=== PATIENT | female | born 1950 | race Caucasian/White ===

== ENCOUNTER 2016-11-10 12:08 | Emergency (ER) | payer OTHER ==
[~2016-11-10 12:08] MED LIST: ASPI81CH21 PO; IBUP200T2 PO; LIDO1DIS2 TD; MEGE40TA2 PO; XARE15TA PO
[2016-11-10] MEDS ORDERED: ONDANSETRON 4MG/2ML VIAL (J2405) As Ordered ONE (13:17)
[2016-11-10] MEDS ORDERED: MORPHINE 4 MG/ML 1ML SYRINGE As Ordered ONE ×2 (13:18→15:02)
[2016-11-10 13:20] LABS: BASO # 0.1 K/mm3 (0.0-0.2); EOS # 0.1 K/mm3 (0.0-0.50); EOS % 1.2 % (0.0-3.0); LARGE UNSTAINED CELL # 0.1 K/mm3 (0.0-0.4); LARGE UNSTAINED CELL % 1.1 % (0.0-4.0); LYMPH % 14.6 % (24.0-44.0); MEAN CORPUSCULAR HEMOGLOBIN 28.9 pg (27.0-33.0); MEAN CORPUSCULAR HGB CONC 32.5 g/dl (32.0-36.5); MONO # 0.4 K/mm3 (0.0-0.8); MONO % 6.1 % (0.0-5.0); NEUTROPHILS # 4.8 K/mm3 (1.8-7.7); NEUTROPHILS % 75.9 % (36.0-66.0); PLATELET COUNT, AUTOMATED 232 k/mm3 (150-450); RED CELL DISTRIBUTION WIDTH 12.9 % (11.5-14.5); WHITE BLOOD COUNT 6.3 K/mm3 (4.0-10.0)
[2016-11-10 13:30] LABS: ANION GAP 9 MEQ/L (8-16); BLOOD UREA NITROGEN 27 MG/DL (7-18); CALCIUM LEVEL 9.1 MG/DL (8.8-10.2); CARBON DIOXIDE LEVEL 28 MEQ/L (21-32); CHLORIDE LEVEL 102 MEQ/L (98-107); CREATININE FOR GFR 1.06 MG/DL (0.55-1.02); GLOMERULAR FILTRATION RATE 55.6 (>45); GLUCOSE, FASTING 121 MG/DL (80-110); POTASSIUM SERUM 4.1 MEQ/L (3.5-5.1); SODIUM LEVEL 139 MEQ/L (136-145)
[2016-11-10] MEDS ORDERED: ISOVUE-370 76% 100ML VIAL (Q9967) As Ordered ONE (13:54)
[2016-11-10] MEDS ORDERED: CYCLOBENZAPRINE 10 MG TAB As Ordered ONE (18:29)
[2016-11-10] MEDS ORDERED: OXYCODONE/APAP 5MG/325MG(BULK) 1 TAB TAB As Ordered ONE (18:30)
--- NOTE | 2016-11-10 18:51 | EDDOCDS ---
Nurse's Notes [facility] Name: Radha So Age: 66 yrs Sex: Female : 1950 Arrival Date: 11/10/2016 Time: 12:08 Bed 6 Private MD: Diagnosis: Intervertebral disc disorders with radiculopathy, lumbar [id number], L5-S1 with right L5 nerve root compression at both levels Presentation: 11/10 12:18 Presenting complaint: Patient states: increased pain to right hip and right leg for jjr past week, developed dizziness and two episodes of sharp pain to left anterior chest this morning. Adult Sepsis Screening: The patient does not have new or worsening altered mentation. Patient's respiratory rate is less than 22. Systolic blood pressure is greater than 100. Patient has a qSOFA score of 0- Negative Sepsis Screen. Suicide/Homicide risk assessment- the patient denies having any suicidal and/or homicidal ideations and does not present with any other emotional, behavioral or mental health complaints. Status: Patient is not a residential service technician or dependent. Transition of care: patient was not received from another setting of care. 12:18 Acuity: JOSE Level 3 jjr 12:18 Method Of Arrival: Walkin/Carried/Asstd jjr 18:49 Aspirin was not taken prior to arrival. dls Triage Assessment: 12:26 General: Appears in no apparent distress. Pain: Location: right hip and right leg. HIV jjr screening NA for this visit Offered previously. Cardiovascular: Chest pain is described as vague, radiates Does not radiate. episodes are intermittent began 2 hours prior to arrival. Historical: - Allergies: codeine (Anaphylaxis); - Home Meds: 1. letrozole 2.5 mg oral tab 1 tab once daily 2. potassium chloride 10 mEq Oral cpER 2 caps once daily 3. Prinivil 10 mg Oral tab 1 tab once daily (Last dose: 11/10/2016) 4. chlorthalidone Unknown Oral 0.5 tab once daily 5. Vitamin D3 5,000 unit oral tab daily 6. magnesium oxide 400 mg Oral tab daily 7. Tylenol 500 mg Oral tab prn (Last dose: 11/09/2016) - PMHx: Hypertension; Cancer, Uterine; back pain; DVT; Pulmonary Embolism; DDD L-Spine; - PSHx: D & C; Oophorectomy - unilateral; right knee arthroscopy with meniscus repair; - The history from nurses notes was reviewed: and elements of the historical information I have obtained differs from that reported to nursing. - Social history: Smoking status: Patient states former smoker of tobacco. No barriers to communication noted, The patient speaks fluent Mauritanian. - Family history: Not pertinent. - : The pt / caregiver states he / she is not on anticoagulants. Home medication list is obtained from the patient. - Hospitalizations: : No recent hospitalization is reported. - Exposure Risk Screening:: None identified. - Immunization history:: All immunizations up-to-date. - Social history:: the patient is a non-smoker, the patient does not drink alcohol. Screenin:28 Screening information is obtained from the patient. Fall risk: No risks identified. dls Assistance ADL's: requires no assistance with activities of daily living. Abuse/DV Screen: The patient / caregiver reports he/she is: not in a situation that causes fear, pain or injury. Nutritional screening: No deficits noted. Advance Directives: Currently, there is no health care proxy. There is no active DNR order. There is no living will. There is no Power of Floor Covering Printer. Advance directive information has not previously been placed in an [facility] medical record. home support is adequate. Assessment: 13:27 General: Appears obese, uncomfortable, well developed, well nourished, well groomed, dls Behavior is cooperative. Neurological: No deficits noted. EENT: No deficits noted. Cardiovascular: No deficits noted. Respiratory: No deficits noted. GI: No deficits noted. : No deficits noted. Derm: No deficits noted. 14:20 General: Pt returned from CT via stretcher IV site remains patent and clear visiting dls with family at bedside.. 15:43 General: Pt states good relief of discomfort after pain medication lying on stretcher dls but is able to move around more now awaiting MRI.. 18:08 General: Pt ambulated in hallway briskly without assist pt states minimal discomfort dls during ambulation notified.. 18:50 Cardiovascular: Rhythm is sinus rhythm. dls Vital Signs: 12:11 BP 194 / 80 RA Sitting (auto/lg); Pulse 85; Resp 22; Temp 98.6(O); Pulse Ox 99% on R/A; bnb Weight 138.8 kg; Height 5 ft. 5 in. (165.10 cm); Pain 8/10; 15:09 BP 135 / 65; Pulse 82; Resp 20; Pain 8/10; dls 15:42 BP 136 / 74; Pain 3/10; dls 16:58 BP 126 / 59 (auto/); dls 16:59 Pulse 78 MON; dls 17:00 Pulse 74 MON; Pulse Ox 95% ; dls 17:26 BP 108 / 70 (auto/); dls 17:26 Pulse 80 MON; Pulse Ox 94% ; dls 18:47 BP 122 / 60; Pulse 76; Resp 18; Temp 97.4(TE); Pulse Ox 98% on R/A; Pain 2/10; dls 12:11 Body Mass Index 50.92 (138.80 kg, 165.10 cm) bnb Vitals: 12:11 Log In Time: November 10, 2016 at 12:08. bnb 12:11 RN notified that patient meets Red Flag criteria. bnb ED Course: 12:09 Patient visited by Mariluz Tapia PCA. bnb 12:09 Patient moved to Waiting bnb 12:12 Patient visited by Mariluz Tapia PCA. bnb 12:14 Patient visited by Mariluz Tapia PCA. bnb 12:16 Anna Freeman RN is Primary Nurse. jjr 12:16 Patient moved to 6 jjr 12:20 Triage Initiated jjr 12:30 EKG done. (by ED staff). Reviewed by Anna Freeman RN. jrd 12:31 Patient visited by Phill Judd PCA. jrd 12:44 Yunior Trevizo MD is Attending Physician. pc 13:14 CBC with Diff Sent. dls 13:15 Patient visited by Yunior Trevizo MD. pc 13:15 MED Profile Sent. dls 13:15 CIP Sent. dls 13:15 Troponin Sent. dls 13:28 The patient / caregiver is instructed regarding the plan of care and ED course. Cardiac dls monitor on. Pulse ox on. NIBP on. 13:28 Inserted saline lock: 18 gauge in right antecubital area and blood collected. The dls patient tolerated the procedure well. No procedures done that require assistance. 14:20 Patient visited by Anna Freeman RN. dls 15:28 Patient visited by Anna Freeman RN. dls 16:36 [facility] Payment Agreement was scanned into [employer] and attached to record. zo 16:51 Patient visited by Yunior Trevizo MD. pc 17:54 Patient visited by Yunior Trevizo MD. pc 18:24 Jaime Gandhi is Referral Physician. pc Administered Medications: 13:26 Drug: Ondansetron 4 mg [ondansetron HCl 2 mg/mL intravenous solution (2 mL)] Route: dls IVP; Site: right antecubital; 13:26 Drug: Diazepam 2 mg [diazepam 5 mg/mL injection syringe (0.4 mL)] Route: IVP; Site: dls right antecubital; 13:27 Drug: morphine 4 mg [morphine 4 mg/mL intravenous cartridge (1 mL)] Route: IVP; Site: dls right antecubital; 15:09 Drug: morphine 4 mg [morphine 4 mg/mL intravenous cartridge (1 mL)] Route: IVP; Site: dls right antecubital; 15:42 Follow up: BP 136 / 74; Pain 3/10 Adult; Response: Pain is decreased dls 18:46 Drug: oxyCODONE-acetaminophen 4 pack 1 packets [oxycodone-acetaminophen 5 mg-325 mg dls tablet (1 tabs)] {Co-Signature: kc3 (Debbie Magana RN).} Route: PO; 18:46 Drug: Cyclobenzaprine 10 mg [cyclobenzaprine 10 mg tablet (1 tabs)] Route: PO; dls 18:46 Follow up: Response: Med's dispensed home dls Order Results: Lab Order: CBC with Diff; SPEC'M 11/10/16 12:53 Test: WHITE BLOOD COUNT; Value: 6.3; Range: 4.0-10.0; Units: K/mm3; Status: F Test: RED BLOOD COUNT; Value: 4.87; Range: 4.00-5.40; Units: M/mm3; Status: F Test: HEMOGLOBIN; Value: 14.1; Range: 12.0-16.0; Units: g/dl; Status: F Test: HEMATOCRIT; Value: 43.4; Range: 36.0-47.0; Units: %; Status: F Test: MEAN CORPUSCULAR VOLUME; Value: 89.0; Range: 80.0-96.0; Units: fl; Status: F Test: MEAN CORPUSCULAR HEMOGLOBIN; Value: 28.9; Range: 27.0-33.0; Units: pg; Status: F Test: MEAN CORPUSCULAR HGB CONC; Value: 32.5; Range: 32.0-36.5; Units: g/dl; Status: F Test: RED CELL DISTRIBUTION WIDTH; Value: 12.9; Range: 11.5-14.5; Units: %; Status: F Test: PLATELET COUNT, AUTOMATED; Value: 232; Range: 150-450; Units: k/mm3; Status: F Test: NEUTROPHILS %; Value: 75.9; Range: 36.0-66.0; Abnormal: Above high normal; Units: %; Status: F Test: LYMPH %; Value: 14.6; Range: 24.0-44.0; Abnormal: Below low normal; Units: %; Status: F Test: MONO %; Value: 6.1; Range: 0.0-5.0; Abnormal: Above high normal; Units: %; Status: F Test: EOS %; Value: 1.2; Range: 0.0-3.0; Units: %; Status: F Test: BASO %; Value: 1.0; Range: 0.0-1.0; Units: %; Status: F Test: LARGE UNSTAINED CELL %; Value: 1.1; Range: 0.0-4.0; Units: %; Status: F Test: NEUTROPHILS #; Value: 4.8; Range: 1.8-7.7; Units: K/mm3; Status: F Test: LYMPH #; Value: 1.0; Range: 1.5-4.5; Abnormal: Below low normal; Units: K/mm3; Status: F Test: MONO #; Value: 0.4; Range: 0.0-0.8; Units: K/mm3; Status: F Test: EOS #; Value: 0.1; Range: 0.0-0.50; Units: K/mm3; Status: F Test: BASO #; Value: 0.1; Range: 0.0-0.2; Units: K/mm3; Status: F Test: LARGE UNSTAINED CELL #; Value: 0.1; Range: 0.0-0.4; Units: K/mm3; Status: F Lab Order: MED Profile; SPEC'11/10/16 12:53 Test: GLUCOSE, FASTING; Value: 121; Range: 80-110; Abnormal: Above high normal; Units: MG/DL; Status: F Test: BLOOD UREA NITROGEN; Value: 27; Range: 7-18; Abnormal: Above high normal; Units: MG/DL; Status: F Test: CREATININE FOR GFR; Value: 1.06; Range: 0.55-1.02; Abnormal: Above high normal; Units: MG/DL; Status: F Test: GLOMERULAR FILTRATION RATE; Value: 55.6; Range: >45; Status: F Test: SODIUM LEVEL; Value: 139; Range: 136-145; Units: MEQ/L; Status: F Test: POTASSIUM SERUM; Value: 4.1; Range: 3.5-5.1; Units: MEQ/L; Status: F Test: CHLORIDE LEVEL; Value: 102; Range: 98-107; Units: MEQ/L; Status: F Test: CARBON DIOXIDE LEVEL; Value: 28; Range: 21-32; Units: MEQ/L; Status: F Test: ANION GAP; Value: 9; Range: 8-16; Units: MEQ/L; Status: F Test: CALCIUM LEVEL; Value: 9.1; Range: 8.8-10.2; Units: MG/DL; Status: F Test Note: ; Units are mL/min/1.73 m2 Chronic Kidney Disease Staging per NKF: Stage I & II GFR >=60 Normal to Mildly Decreased Stage III GFR 30-59 Moderately Decreased Stage IV GFR 15-29 Severely Decreased Stage V GFR <15 Very Little GFR Left ESRD GFR <15 on AIRCRAFT STRESS ANALYST Lab Order: CIP; SPEC'11/10/16 12:53 Test: CPK CREATINE PHOSPHOKINASE; Value: 52; Range: 26-192; Units: U/L; Status: F Test: CK-MB VALUE MASS; Value: 1.5; Range: 0.0-3.6; Units: NG/ML; Status: F Test: MB/CK RELATIVE INDEX; Value: 2.88; Range: < OR =4; Status: F Test Note: ; DIAGNOSIS CRITERIA MMB ng/ml Relative Index (RI) NON-AMI < or = 5 N/A SHARMA ZONE > 5 < or = 4 AMI > 5 > 4 Lab Order: Troponin; DIANA'M 11/10/16 12:53 Test: TROPONIN I; Value: < 0.02; Range: < 0.10; Units: NG/ML; Status: F Test Note: ; Troponin I Reference Interval for [employer] LOCI: 99th Percentile= 0.00-0.045 ng/ml Risk Stratification: <= 0.10 ng/ml Decreased Risk for Adverse Clinical Events. 0.10-1.50 ng/ml Increased Risk for Adverse Clinical Events. Evaluation of additional criterion and/or repeat testing in 2-6 hours is suggested to rule out myocardial damage. >= 1.50 ng/ml Indicative of Myocardial Injury. Outcome: 18:24 Discharge ordered by Provider. pc 18:48 Discharge Assessment: Patient awake, alert and oriented x 3. No cognitive and/or dls functional deficits noted. Patient verbalized understanding of disposition instructions. patient administered narcotics - yes. Pt provided with safe discharge. The following High Risk Discharge criteria are identified: None. Discharged to home via wheelchair, with family. Condition: stable Condition: improved. Discharge instructions given to patient, Instructed on discharge instructions, follow up and referral plans. medication usage, Demonstrated understanding of instructions, medications, Pt was receptive of discharge instructions/ teaching. Prescriptions given X 2. CT Study completed. MRI Study completed. Property :Personal belongings accompany Pt. 18:50 Patient left the ED. dls Signatures: Yunior Trevizo MD MD pc Scott, Debra, RN RN dls Olin, Zoeann zo Raymond, Jessica, RN RN Phill Mo, CRNP CRNP Mariluz Hernández, CRNP CRNP holleyb Debbie Magana RN kc3 MTDD
--- NOTE | 2016-11-10 18:51 | EDDOCDS ---
Physician Documentation [facility] Name: Radha So Age: 66 yrs Sex: Female : 1950 Arrival Date: 11/10/2016 Time: 12:08 Bed 6 Private MD: Disposition: 11/10 18:22 Critical Care: Critical care not applicable. pc Disposition: 11/10/16 18:24 Discharged to Home/Self Care. Impression: Intervertebral disc disorders with radiculopathy, lumbar region - L4-L5, L5-S1 with right L5 nerve root compression at both levels. - Condition is Stable. - Discharge Instructions: Herniated Disk, Sciatica. - Prescriptions for Percocet 5- 325 mg Oral Tablet - take 1 tablet by ORAL route every 6 hours As needed MDD: 4 tabs; 20 tablet. Cyclobenzaprine 10 mg Oral Tablet - take 1 tablet by ORAL route 3 times per day As needed; 15 tablet. - Medication Reconciliation, Local Pharmacy Hours form. - Follow up: Jaime Gandhi; When: Call to arrange an appointment; Reason: Recheck today's complaints, Continuance of care. - Problem is new. - Symptoms have improved. HPI: 13:31 This 66 yrs old Female presents to ER via Walkin/Carried/Asstd with pc complaints of Chest Pain, Leg Pain. 13:32 The history is obtained from the patient. She has chronic low back pain that is managed pc with OTCs well. She did shovelling 6 days ago and felt sudden pain in her low back that radiated into her right buttock and down the back of her leg to her foot. She denies having any numbness or weakness in the leg. She has been having increased pain and now is unable to walk without a walker or two canes, but even then, has been bedridden for the past 3 days. She had increased pain while trying to go to the bathroom this morning and felt dizzy during the pain., She made it back to her bed and lay down and still had a sense of the room spinning. She was not SOB but she did have a sudden "twinge of pain" in her left breast. She denies any bowel or bladder control issues. 13:37 At their worst, the symptoms were a 10 out of 10. In the emergency department, the pc symptoms are unchanged. The patient has experienced a previous episode, approximately 5 years ago. The patient has been recently seen by their primary care provider, for a routine, regularly scheduled appointment. Historical: - Allergies: codeine (Anaphylaxis); - Home Meds: 1. letrozole 2.5 mg oral tab 1 tab once daily 2. potassium chloride 10 mEq Oral cpER 2 caps once daily 3. Prinivil 10 mg Oral tab 1 tab once daily (Last dose: 11/10/2016) 4. chlorthalidone Unknown Oral 0.5 tab once daily 5. Vitamin D3 5,000 unit oral tab daily 6. magnesium oxide 400 mg Oral tab daily 7. Tylenol 500 mg Oral tab prn (Last dose: 11/09/2016) - PMHx: Hypertension; Cancer, Uterine; back pain; DVT; Pulmonary Embolism; DDD L-Spine; - PSHx: D & C; Oophorectomy - unilateral; right knee arthroscopy with meniscus repair; - The history from nurses notes was reviewed: and elements of the historical information I have obtained differs from that reported to nursing. - Social history: Smoking status: Patient states former smoker of tobacco. No barriers to communication noted, The patient speaks fluent Brazilian. - Family history: Not pertinent. - : The pt / caregiver states he / she is not on anticoagulants. Home medication list is obtained from the patient. - Hospitalizations: : No recent hospitalization is reported. - Exposure Risk Screening:: None identified. - Immunization history:: All immunizations up-to-date. - Social history:: the patient is a non-smoker, the patient does not drink alcohol. ROS: 13:37 All systems are negative except as listed. pc Exam: 13:37 General Appearance: alert, the patient is in moderate distress. pc 13:37 EENT: normal eye inspection, ears, nose and throat normal, pharynx normal, mucous membranes moist 13:37 Neck: The exam reveals no acute abnormalities. ROM is normal and painless. No nuchal rigidity is noted.. 13:37 Respiratory: no respiratory distress, normal breath sounds, chest non-tender. 13:37 CVS: regular pulse rate, regular rhythm, normal S1 and S2, no murmurs, strong peripheral pulses. 13:37 Abdomen: soft, non-tender, no organomegaly, normal bowel sounds. 13:37 Back: Pain is noted in the lumbar area and right low back, SLR positive at 45 degrees right, negative left . 13:37 Skin: skin color is normal, warm, dry. 13:37 Extremities: The extremities have a grossly normal appearance, are non-tender, without acute ROM abnormalities. 13:37 Neuro: oriented x 3, cranial nerves normal as tested, no motor deficits, no sensory deficits. 13:37 Psych: normal mood. Vital Signs: 12:11 BP 194 / 80 RA Sitting (auto/lg); Pulse 85; Resp 22; Temp 98.6(O); Pulse Ox 99% on R/A; bnb Weight 138.8 kg / 306 lbs; Height 5 ft. 5 in. (165.10 cm); Pain 8/10; 15:09 BP 135 / 65; Pulse 82; Resp 20; Pain 8/10; dls 15:42 BP 136 / 74; Pain 3/10; dls 16:58 BP 126 / 59 (auto/); dls 16:59 Pulse 78 MON; dls 17:00 Pulse 74 MON; Pulse Ox 95% ; dls 17:26 BP 108 / 70 (auto/); dls 17:26 Pulse 80 MON; Pulse Ox 94% ; dls 18:47 BP 122 / 60; Pulse 76; Resp 18; Temp 97.4(TE); Pulse Ox 98% on R/A; Pain 2/10; dls 12:11 Body Mass Index 50.92 (138.80 kg, 165.10 cm) bnb MDM: 12:19 ECG WITH READING ER PHYS+CARDIAG ordered. EDMS 13:12 IV Saline Lock ordered. pc 13:12 morphine 4 mg IVP once ordered. pc 13:12 Ondansetron 4 mg IVP once ordered. pc 13:12 Diazepam 2 mg IVP once ordered. pc 13:13 Or Manager/Pulse Ox/q 30 min VS ordered. pc 13:13 CBC with Diff Ordered. EDMS 13:13 MED Profile Ordered. EDMS 13:13 CIP Ordered. EDMS 13:13 Troponin Ordered. EDMS 13:14 CT Chest Angio R/O PE Ordered. EDMS 13:14 CT Spine, Lumbar W/o Contrast Ordered. EDMS 13:30 Test interpretation: EKG. pc 13:37 Differential Diagnosis: right L5/S1 radicular pain; dizziness/brief chest pain with pc history of PE still on antiestrogen therapy. Plan: EK, labs, imaging, analgesia. 13:46 CBC with Diff Reviewed. pc 13:46 MED Profile Reviewed. pc 13:46 CIP Reviewed. pc 13:46 Troponin Reviewed. pc 14:56 MRI Screening Tool - Place on chart, inform RN ordered. pc 14:57 morphine 4 mg IVP every 15 minutes; Document pain score/vitals after each dose (Hold if pc SBP < 90mmHg) x2 ordered. 14:58 -MRI-Spine, Lumbar without contrast Ordered. EDMS 15:09 MRI Screening Tool - Place on chart, inform RN complete. dls 16:16 Financial registration complete. zo 16:36 [facility] Payment Agreement was scanned into [employer] and attached to record. zo 17:29 REGULAR+DIET ordered. EDMS 17:55 Ambulate patient to assess pain tolerance ordered. pc 18:15 Data reviewed: old medical records, vital signs, nurses notes, EKG(s), lab test pc results, all radiology studies and available results. Test interpretation: LAB - all labs as ordered have been reviewed, interpreted and considered in the overall management of the clinical presentation; interpreted by Radiologist and personally reviewed, Chest CT; no acute disease, L-Spine CT; L4/5 grade 1 anterolisthesis, L5-S1 disc bulge , MRI - interpreted by Radiologist and personally reviewed, L-Spine MRI L4-5 disc bulge with right L5 nerve root compression, L5-S1 disc bulge with right L5 nerve root compression . The patient has been re-examined and re-evaluated. The patient's symptoms have markedly improved after treatment, as she is walking throughout the ED without assistance. 18:22 Physician consultation: Dr. Jaime Gandhi was contacted at 18:23, regarding patient's pc condition, and will see patient in office. Disposition: The historical points, examination findings, and any diagnostic results supporting the provided diagnosis, were discussed with the patient or legal guardian. The need for outpatient follow up with the provider listed on their discharge instructions was discussed. They were encouraged to return to [facility], or the nearest ED, if symptoms worsen/persist, or for any other questions/concerns. 18:27 oxyCODONE-acetaminophen 4 pack 5 mg-325 mg 1 packets PO once; Dispense with pt, take as pc per instruction on package ordered. 18:27 Cyclobenzaprine 10 mg PO Per package directions; dispense 2 to go: take one at bedtime pc and in the morning ordered. EC:30 Rate is 75 beats/min. Rhythm is regular, Normal Sinus Rhythm. Left axis deviation pc noted. QRS is negative in leads II, aVF. WV interval is normal. QRS interval is normal. QT interval is normal. No Q waves. T waves are Normal. No ST changes noted. Clinical impression: Normal Sinus Rhythm and LAD. No change from previous ECG in September,. Administered Medications: 13:26 Drug: Ondansetron 4 mg [ondansetron HCl 2 mg/mL intravenous solution (2 mL)] Route: dls IVP; Site: right antecubital; 13:26 Drug: Diazepam 2 mg [diazepam 5 mg/mL injection syringe (0.4 mL)] Route: IVP; Site: [facility] right antecubital; 13:27 Drug: morphine 4 mg [morphine 4 mg/mL intravenous cartridge (1 mL)] Route: IVP; Site: [facility] right antecubital; 15:09 Drug: morphine 4 mg [morphine 4 mg/mL intravenous cartridge (1 mL)] Route: IVP; Site: [facility] right antecubital; 15:42 Follow up: BP 136 / 74; Pain 3/10 Adult; Response: Pain is decreased dls 18:46 Drug: oxyCODONE-acetaminophen 4 pack 1 packets [oxycodone-acetaminophen 5 mg-325 mg dls tablet (1 tabs)] {Co-Signature: kc3 (Debbie Magana RN).} Route: PO; 18:46 Drug: Cyclobenzaprine 10 mg [cyclobenzaprine 10 mg tablet (1 tabs)] Route: PO; dls 18:46 Follow up: Response: Med's dispensed home dls Signatures: Dispatcher [employer] Yunior Vergara MD MD pc Scott, Debra, RN RN dls Olin, Zoeann zo Raymond, Jessica, RN RN jjr Kelsi Crane RN kc3 The chart was reviewed and I authenticate all verbal orders and agree with the evaluation and treatment provided.Corrections: (The following items were deleted from the chart) 13:40 13:32 She has chronic low back pain pc pc Attachments: 16:36 [facility] Payment Agreement zo MTDD
--- NOTE | 2016-11-10 19:37 | ECGEPIP ---
Stationary ECG Study [facility] - ED Test Date: 2016-11-10 Pat Name: MANJINDER EGRMAIN Department: Room: - Gender: F Superintendent Distribution: [facility] : 1950 Requested By: Yunior Jessica Order Number: [id number] Reading MD: Pa Kelley Measurements Intervals [place] Rate: 75 P: 9 HI: 160 QRS: -30 QRSD: 102 T: 17 QT: 385 QTc: 432 Interpretive Statements SINUS RHYTHM BORDERLINE LEFT AXIS DEVIATION LAFB DELAYED R WAVE PROGRESSION NONSPECIFIC ST T WAVE CHANGES CW 10/04/12 - RATE SLOWER Electronically Signed On 11-10-2016 19:37:30 EST by Pa Kelley
--- NOTE | 2016-11-11 06:09 | REP ---
CT ANGIOGRAM CHEST: 11/10/2016. Clinical history: Dyspnea. Prior PE. Chest pain. Comparison: 10/03/2012. Technique: Bolus of 75 ml Isovue given with scanning through the chest with both coronal and sagittal thick slab MIP reformats performed. Lung connell are mildly hypoinflated. There is crowded markings and subsegmental atelectatic change and dependent atelectasis posteriorly in the lower lung zones. No definite effusion or acute infiltrate. There is no parenchymal mass, pulmonary nodule, pleural thickening, calcified pleural plaques or pneumothorax. No pneumomediastinum. Heart is not enlarged. No pericardial thickening or effusion. The aorta is without aneurysm or dissection. The main, right and left pulmonary arteries are without filling defects. Lobar, segmental and visible subsegmental arteries are opacified and without vessel cutoff or filling defects that would suggest pulmonary emboli. No pathologic sized mediastinal or hilar adenopathy. No axillary or supraclavicular mass. Slight elevation of the right diaphragm. The liver and spleen are not enlarged and show no focal lesion. The gallbladder shows some layered sludge within. Pancreas, adrenal glands, upper poles of kidneys all unremarkable. Upper abdominal aorta intact. Loops of small bowel and colon in the upper abdomen intact. No free air in the upper abdomen. The bone windows show the sternum, manubrium, medial heads of the clavicles, glenohumeral joints, humeral heads, scapulae, ribs and the thoracic spine are without acute compression fractures. There are marginal osteophytes throughout the thoracic region. Impression: 1. Hypoinflated chest with some dependent and subsegmental atelectatic changes without effusion, acute infiltrate, pneumothorax, mass or pleural thickening. 2. No pericardial thickening or effusion. The aorta is without aneurysm or dissection. 3. No CT evidence for pulmonary thromboembolism. 4. Visualized portions of upper abdomen show only small amount of sludge in the gallbladder. Signed by Luisito Hadley MD 11/11/2016 09:09 A
--- NOTE | 2016-11-11 06:13 | REP ---
CT LUMBAR SPINE WITHOUT CONTRAST: 11/10/2016. Clinical history: Back pain, trauma. Comparison: Lumbar MRI 05/25/2013, x-ray 03/03/2002. Findings: Noncontrast images extending from upper aspect T11-S1. Coronal and sagittal reconstructions provided. Normal lordosis is maintained. Vertebral body heights and the disc space heights from T11-12 through L5-S1 are maintained. There is a few millimeters of anterolisthesis of L4 on 5 unchanged from the MRI 3 years ago with facet arthropathy present but no spondylolysis. Facet arthropathy from L3-4 through L5-S1 with vacuum phenomenon and greater degenerative changes at the lower two levels. No level shows spondylolysis. No compression deformity is noted. There are marginal osteophytes at multiple levels. No destructive lesion is seen. The central canal shows disc bulge at the L4-5 with some ligamentum flavum and facet hypertrophy. The cross-sectional area of the canal adequate. Foramina adequate. Disc bulges at L3-4 and L2-3 also seen without central or foraminal stenosis. The L1-2, T12-L1 and T11-12 levels are intact and at L5-S1, minimal disc bulge without spinal stenosis. Foramina show encroachment on the right greater than left due to facet and marginal osteophytes with disc bulge at this level. Impression: 1. Multilevel degenerative disc disease with marginal osteophytes but no compression deformities, disc space narrowing or destructive lesion. 2. Facet arthropathy lower lumbar spine with a few millimeters of anterolisthesis of L4 on L5 due to facet arthritis. 3. L5-S1 level shows disc bulge without central canal stenosis but facet hypertrophy and a bulging with marginal osteophytes contribute to some foraminal encroachment, right greater than left. No central canal stenosis or other foraminal encroachment at any other level. Signed by Luisito Hadley MD 11/11/2016 09:09 A
--- NOTE | 2016-11-11 07:39 | REP ---
MRI LUMBAR SPINE WITHOUT CONTRAST: 11/10/2016. Comparison: CT lumbar spine 11/10/2016, MRI lumbar spine 05/25/2013. Clinical history: Low back pain with right-sided L5-S1 radiculopathy. Technique: Sagittal T1, T2 and STIR images with axial T1 and T2 sequences provided. The sagittal images show the normal lumbar lordosis maintained. The disc space is slightly narrowed at L3-4 and L4-5 with loss of disc water signal at those levels and L5-S1. Height is maintained at L5-S1 and L2-3. Disc water signal is maintained and height maintained at L1-2. The two levels above that show mild narrowing at T11-12. There is no compression deformity of destructive bone lesion. The conus terminates at the L1-2 level. The T11-12, T12-L1, L1-2 and L2-3 levels show no disc bulge or herniation and no spinal or foraminal stenosis. There is minimal facet hypertrophy at those levels. At L3-4, there is a mild diffuse disc bulge minimally flattening the ventral thecal sac. Some ligamentum flavum and facet hypertrophy noted but the foramina are ample. The cross-sectional area of the canal was normal. At L4-5, there is hypertrophic facet change, ligamentum flavum hypertrophy and a few millimeters of anterolisthesis of L4 on L5, similar to the 2013 MR. There is a broad-based disc bulge centrally with disc protrusion. This thins the ventral subarachnoid space. It abuts the L5 nerve roots in the canal and slightly displaces the right L5 nerve root. The foramina are adequate without nerve root compression. At L5-S1, there is a minimal broad-based disc bulge abutting the thecal sac but not abutting or displacing the S1 nerve roots. The central canal shows ample subarachnoid space. There is foraminal encroachment on the right with the L5 nerve root compressed in the foramen. The left L5 nerve root shows less perineural fat without nerve root compression. No other significant finding. Impression: 1. Lumbar spondylosis with disc bulge and central protrusion at L4-5 with associated facet arthritis and grade 1 anterolisthesis of L4 on L5. The protrusion abuts and slightly displaces the right L5 nerve root in the canal. Cross-sectional area of the canal and foramina are adequate. 2. At L5-S1, the central canal was adequate and there is foraminal encroachment and nerve root compression on the right compressing that same L5 nerve root in the foramen. The left L5 nerve root has less perineural fat but no compression at this level. No compression deformity or other significant finding. 3. All other levels were intact and unremarkable. Signed by Luisito Hadley MD 11/11/2016 09:19 A
--- NOTE | 2016-11-12 19:51 | EDDOCDS ---
Nurse's Notes [facility] Name: Radha So Age: 66 yrs Sex: Female : 1950 Arrival Date: 11/10/2016 Time: 12:08 Bed 6 Private MD: Diagnosis: Intervertebral disc disorders with radiculopathy, lumbar nwgozs-C2-D0, L5-S1 with right L5 nerve root compression at both levels Presentation: 11/10 12:18 Presenting complaint: Patient states: increased pain to right hip and right leg for jjr past week, developed dizziness and two episodes of sharp pain to left anterior chest this morning. Adult Sepsis Screening: The patient does not have new or worsening altered mentation. Patient's respiratory rate is less than 22. Systolic blood pressure is greater than 100. Patient has a qSOFA score of 0- Negative Sepsis Screen. Suicide/Homicide risk assessment- the patient denies having any suicidal and/or homicidal ideations and does not present with any other emotional, behavioral or mental health complaints. Status: Patient is not a center sales and service associate or dependent. Transition of care: patient was not received from another setting of care. 12:18 Acuity: JOSE Level 3 jjr 12:18 Method Of Arrival: Walkin/Carried/Asstd jjr 18:49 Aspirin was not taken prior to arrival. dls Triage Assessment: 12:26 General: Appears in no apparent distress. Pain: Location: right hip and right leg. HIV jjr screening NA for this visit Offered previously. Cardiovascular: Chest pain is described as vague, radiates Does not radiate. episodes are intermittent began 2 hours prior to arrival. Historical: - Allergies: codeine (Anaphylaxis); - Home Meds: 1. letrozole 2.5 mg oral tab 1 tab once daily 2. potassium chloride 10 mEq Oral cpER 2 caps once daily 3. Prinivil 10 mg Oral tab 1 tab once daily (Last dose: 11/10/2016) 4. chlorthalidone Unknown Oral 0.5 tab once daily 5. Vitamin D3 5,000 unit oral tab daily 6. magnesium oxide 400 mg Oral tab daily 7. Tylenol 500 mg Oral tab prn (Last dose: 11/09/2016) - PMHx: Hypertension; Cancer, Uterine; back pain; DVT; Pulmonary Embolism; DDD L-Spine; - PSHx: D & C; Oophorectomy - unilateral; right knee arthroscopy with meniscus repair; - The history from nurses notes was reviewed: and elements of the historical information I have obtained differs from that reported to nursing. - Social history: Smoking status: Patient states former smoker of tobacco. No barriers to communication noted, The patient speaks fluent [place]. - Family history: Not pertinent. - : The pt / caregiver states he / she is not on anticoagulants. Home medication list is obtained from the patient. - Hospitalizations: : No recent hospitalization is reported. - Exposure Risk Screening:: None identified. - Immunization history:: All immunizations up-to-date. - Social history:: the patient is a non-smoker, the patient does not drink alcohol. Screenin:28 Screening information is obtained from the patient. Fall risk: No risks identified. dls Assistance ADL's: requires no assistance with activities of daily living. Abuse/DV Screen: The patient / caregiver reports he/she is: not in a situation that causes fear, pain or injury. Nutritional screening: No deficits noted. Advance Directives: Currently, there is no health care proxy. There is no active DNR order. There is no living will. There is no Power of [employer]. Advance directive information has not previously been placed in an [facility] medical record. home support is adequate. Assessment: 13:27 General: Appears obese, uncomfortable, well developed, well nourished, well groomed, dls Behavior is cooperative. Neurological: No deficits noted. EENT: No deficits noted. Cardiovascular: No deficits noted. Respiratory: No deficits noted. GI: No deficits noted. : No deficits noted. Derm: No deficits noted. 14:20 General: Pt returned from CT via stretcher IV site remains patent and clear visiting dls with family at bedside.. 15:43 General: Pt states good relief of discomfort after pain medication lying on stretcher dls but is able to move around more now awaiting MRI.. 18:08 General: Pt ambulated in hallway briskly without assist pt states minimal discomfort dls during ambulation notified.. 18:50 Cardiovascular: Rhythm is sinus rhythm. dls Vital Signs: 12:11 BP 194 / 80 RA Sitting (auto/lg); Pulse 85; Resp 22; Temp 98.6(O); Pulse Ox 99% on R/A; bnb Weight 138.8 kg; Height 5 ft. 5 in. (165.10 cm); Pain 8/10; 15:09 BP 135 / 65; Pulse 82; Resp 20; Pain 8/10; dls 15:42 BP 136 / 74; Pain 3/10; dls 16:58 BP 126 / 59 (auto/); dls 16:59 Pulse 78 MON; dls 17:00 Pulse 74 MON; Pulse Ox 95% ; dls 17:26 BP 108 / 70 (auto/); dls 17:26 Pulse 80 MON; Pulse Ox 94% ; dls 18:47 BP 122 / 60; Pulse 76; Resp 18; Temp 97.4(TE); Pulse Ox 98% on R/A; Pain 2/10; dls 12:11 Body Mass Index 50.92 (138.80 kg, 165.10 cm) bnb Vitals: 12:11 Log In Time: November 10, 2016 at 12:08. bnb 12:11 RN notified that patient meets Red Flag criteria. bnb ED Course: 12:09 Patient visited by Mariluz Tapia PCA. bnb 12:09 Patient moved to Waiting bnb 12:12 Patient visited by Mariluz Tapia PCA. bnb 12:14 Patient visited by Mariluz Tapia PCA. bnb 12:16 Anna Freeman RN is Primary Nurse. jjr 12:16 Patient moved to 6 jjr 12:20 Triage Initiated jjr 12:30 EKG done. (by ED staff). Reviewed by Anna Freeman RN. jrd 12:31 Patient visited by Phill Judd PCA. jrd 12:44 Yunior Trevizo MD is Attending Physician. pc 13:14 CBC with Diff Sent. dls 13:15 Patient visited by Yunior Trevizo MD. pc 13:15 MED Profile Sent. dls 13:15 CIP Sent. dls 13:15 Troponin Sent. dls 13:28 The patient / caregiver is instructed regarding the plan of care and ED course. Cardiac dls monitor on. Pulse ox on. NIBP on. 13:28 Inserted saline lock: 18 gauge in right antecubital area and blood collected. The dls patient tolerated the procedure well. No procedures done that require assistance. 14:20 Patient visited by Anna Freeman RN. dls 15:28 Patient visited by Anna Freeman RN. dls 16:36 [facility] Payment Agreement was scanned into [employer] and attached to record. zo 16:51 Patient visited by Yunior Trevizo MD. pc 17:54 Patient visited by Yunior Trevizo MD. pc 18:24 Jaime Gandhi is Referral Physician. pc 20:15 EKG-ADULT Returned. EDMS 02 06:11 CT Chest Angio R/O PE Returned. EDMS 06:34 CT Spine, Lumbar W/o Contrast Returned. EDMS 07:46 -MRI-Spine, Lumbar without contrast Returned. EDMS 14:30 ECG/EKG was scanned into [employer] and attached to record. gb Administered Medications: 11/10 13:26 Drug: Ondansetron 4 mg [ondansetron HCl 2 mg/mL intravenous solution (2 mL)] Route: dls IVP; Site: right antecubital; 13:26 Drug: Diazepam 2 mg [diazepam 5 mg/mL injection syringe (0.4 mL)] Route: IVP; Site: dls right antecubital; 13:27 Drug: morphine 4 mg [morphine 4 mg/mL intravenous cartridge (1 mL)] Route: IVP; Site: dls right antecubital; 15:09 Drug: morphine 4 mg [morphine 4 mg/mL intravenous cartridge (1 mL)] Route: IVP; Site: dls right antecubital; 15:42 Follow up: BP 136 / 74; Pain 3/10 Adult; Response: Pain is decreased dls 18:46 Drug: oxyCODONE-acetaminophen 4 pack 1 packets [oxycodone-acetaminophen 5 mg-325 mg dls tablet (1 tabs)] {Co-Signature: kc3 (Debbie Magana RN).} Route: PO; 18:46 Drug: Cyclobenzaprine 10 mg [cyclobenzaprine 10 mg tablet (1 tabs)] Route: PO; dls 18:46 Follow up: Response: Med's dispensed home dls Order Results: Lab Order: CBC with Diff; SPEC'M 11/10/16 12:53 Test: WHITE BLOOD COUNT; Value: 6.3; Range: 4.0-10.0; Units: K/mm3; Status: F Test: RED BLOOD COUNT; Value: 4.87; Range: 4.00-5.40; Units: M/mm3; Status: F Test: HEMOGLOBIN; Value: 14.1; Range: 12.0-16.0; Units: g/dl; Status: F Test: HEMATOCRIT; Value: 43.4; Range: 36.0-47.0; Units: %; Status: F Test: MEAN CORPUSCULAR VOLUME; Value: 89.0; Range: 80.0-96.0; Units: fl; Status: F Test: MEAN CORPUSCULAR HEMOGLOBIN; Value: 28.9; Range: 27.0-33.0; Units: pg; Status: F Test: MEAN CORPUSCULAR HGB CONC; Value: 32.5; Range: 32.0-36.5; Units: g/dl; Status: F Test: RED CELL DISTRIBUTION WIDTH; Value: 12.9; Range: 11.5-14.5; Units: %; Status: F Test: PLATELET COUNT, AUTOMATED; Value: 232; Range: 150-450; Units: k/mm3; Status: F Test: NEUTROPHILS %; Value: 75.9; Range: 36.0-66.0; Abnormal: Above high normal; Units: %; Status: F Test: LYMPH %; Value: 14.6; Range: 24.0-44.0; Abnormal: Below low normal; Units: %; Status: F Test: MONO %; Value: 6.1; Range: 0.0-5.0; Abnormal: Above high normal; Units: %; Status: F Test: EOS %; Value: 1.2; Range: 0.0-3.0; Units: %; Status: F Test: BASO %; Value: 1.0; Range: 0.0-1.0; Units: %; Status: F Test: LARGE UNSTAINED CELL %; Value: 1.1; Range: 0.0-4.0; Units: %; Status: F Test: NEUTROPHILS #; Value: 4.8; Range: 1.8-7.7; Units: K/mm3; Status: F Test: LYMPH #; Value: 1.0; Range: 1.5-4.5; Abnormal: Below low normal; Units: K/mm3; Status: F Test: MONO #; Value: 0.4; Range: 0.0-0.8; Units: K/mm3; Status: F Test: EOS #; Value: 0.1; Range: 0.0-0.50; Units: K/mm3; Status: F Test: BASO #; Value: 0.1; Range: 0.0-0.2; Units: K/mm3; Status: F Test: LARGE UNSTAINED CELL #; Value: 0.1; Range: 0.0-0.4; Units: K/mm3; Status: F Lab Order: MED Profile; SPEC'11/10/16 12:53 Test: GLUCOSE, FASTING; Value: 121; Range: 80-110; Abnormal: Above high normal; Units: MG/DL; Status: F Test: BLOOD UREA NITROGEN; Value: 27; Range: 7-18; Abnormal: Above high normal; Units: MG/DL; Status: F Test: CREATININE FOR GFR; Value: 1.06; Range: 0.55-1.02; Abnormal: Above high normal; Units: MG/DL; Status: F Test: GLOMERULAR FILTRATION RATE; Value: 55.6; Range: >45; Status: F Test: SODIUM LEVEL; Value: 139; Range: 136-145; Units: MEQ/L; Status: F Test: POTASSIUM SERUM; Value: 4.1; Range: 3.5-5.1; Units: MEQ/L; Status: F Test: CHLORIDE LEVEL; Value: 102; Range: 98-107; Units: MEQ/L; Status: F Test: CARBON DIOXIDE LEVEL; Value: 28; Range: 21-32; Units: MEQ/L; Status: F Test: ANION GAP; Value: 9; Range: 8-16; Units: MEQ/L; Status: F Test: CALCIUM LEVEL; Value: 9.1; Range: 8.8-10.2; Units: MG/DL; Status: F Test Note: ; Units are mL/min/1.73 m2 Chronic Kidney Disease Staging per NKF: Stage I & II GFR >=60 Normal to Mildly Decreased Stage III GFR 30-59 Moderately Decreased Stage IV GFR 15-29 Severely Decreased Stage V GFR <15 Very Little GFR Left ESRD GFR <15 on VOICE WRITING REPORTER Lab Order: CIP; SPEC'11/10/16 12:53 Test: CPK CREATINE PHOSPHOKINASE; Value: 52; Range: 26-192; Units: U/L; Status: F Test: CK-MB VALUE MASS; Value: 1.5; Range: 0.0-3.6; Units: NG/ML; Status: F Test: MB/CK RELATIVE INDEX; Value: 2.88; Range: < OR =4; Status: F Test Note: ; DIAGNOSIS CRITERIA MMB ng/ml Relative Index (RI) NON-AMI < or = 5 N/A SHARMA ZONE > 5 < or = 4 AMI > 5 > 4 Lab Order: Troponin; SPEC'M 11/10/16 12:53 Test: TROPONIN I; Value: < 0.02; Range: < 0.10; Units: NG/ML; Status: F Test Note: ; Troponin I Reference Interval for Hydrelis LOCI: 99th Percentile= 0.00-0.045 ng/ml Risk Stratification: <= 0.10 ng/ml Decreased Risk for Adverse Clinical Events. 0.10-1.50 ng/ml Increased Risk for Adverse Clinical Events. Evaluation of additional criterion and/or repeat testing in 2-6 hours is suggested to rule out myocardial damage. >= 1.50 ng/ml Indicative of Myocardial Injury. Radiology Order: EKG-ADULT Test: EKG-ADULT REASON FOR EXAMINATION: Chest Pain; Stationary ECG Study; [facility] - ED; ; Test Date: 2016-11-10; Pat Name: RADHA SO Department:; Room: -; Gender: F Cst: [facility]; : 1950 Requested By: Yunior Jessica; Order Number: [id number] Reading MD: Pa Kelley; Measurements; Intervals [place]; Rate: 75 P: 9; SC: 160 QRS: -30; QRSD: 102 T: 17; QT: 385; QTc: 432; Interpretive Statements; SINUS RHYTHM; BORDERLINE LEFT AXIS DEVIATION; LAFB; DELAYED R WAVE PROGRESSION; NONSPECIFIC ST T WAVE CHANGES; ; CW 10/04/12 - RATE SLOWER; ; Electronically Signed On 11-10-2016 19:37:30 EST by Pa Kelley; Radiology Order: CT Chest Angio R/O PE Test: CT Chest Angio R/O PE REASON FOR EXAMINATION: chest pain, prior PE; CT ANGIOGRAM CHEST: 11/10/2016.; ; Clinical history: Dyspnea. Prior PE. Chest pain.; ; Comparison: 10/03/2012.; ; Technique: Bolus of 75 ml Isovue given with scanning through the chest with both; coronal and sagittal thick slab MIP reformats performed.; ; Lung connell are mildly hypoinflated. There is crowded markings and subsegmental; atelectatic change and dependent atelectasis posteriorly in the lower lung zones.; No definite effusion or acute infiltrate. There is no parenchymal mass,; pulmonary nodule, pleural thickening, calcified pleural plaques or pneumothorax.; No pneumomediastinum. Heart is not enlarged. No pericardial thickening or; effusion. The aorta is without aneurysm or dissection. The main, right and left; pulmonary arteries are without filling defects. Lobar, segmental and visible; subsegmental arteries are opacified and without vessel cutoff or filling defects; that would suggest pulmonary emboli.; ; No pathologic sized mediastinal or hilar adenopathy. No axillary or; supraclavicular mass. Slight elevation of the right diaphragm. The liver and; spleen are not enlarged and show no focal lesion. The gallbladder shows some; layered sludge within. Pancreas, adrenal glands, upper poles of kidneys all; unremarkable. Upper abdominal aorta intact. Loops of small bowel and colon in; the upper abdomen intact. No free air in the upper abdomen.; ; The bone windows show the sternum, manubrium, medial heads of the clavicles,; glenohumeral joints, humeral heads, scapulae, ribs and the thoracic spine are; without acute compression fractures. There are marginal osteophytes throughout; the thoracic region.; ; Impression:; ; 1. Hypoinflated chest with some dependent and subsegmental atelectatic changes; without effusion, acute infiltrate, pneumothorax, mass or pleural thickening.; ; 2. No pericardial thickening or effusion. The aorta is without aneurysm or; dissection.; ; 3. No CT evidence for pulmonary thromboembolism.; ; 4. Visualized portions of upper abdomen show only small amount of sludge in the; gallbladder.; ; ; Signed by; Luisito Hadley MD 11/11/2016 09:09 A; Radiology Order: CT Spine, Lumbar W/o Contrast Test: CT Spine, Lumbar W/o Contrast REASON FOR EXAMINATION: traumatic back pain; CT LUMBAR SPINE WITHOUT CONTRAST: 11/10/2016.; ; Clinical history: Back pain, trauma.; ; Comparison: Lumbar MRI 05/25/2013, x-ray 03/03/2002.; ; Findings: Noncontrast images extending from upper aspect T11-S1. Coronal and; sagittal reconstructions provided.; ; Normal lordosis is maintained. Vertebral body heights and the disc space heights; from T11-12 through L5-S1 are maintained. There is a few millimeters of; anterolisthesis of L4 on 5 unchanged from the MRI 3 years ago with facet; arthropathy present but no spondylolysis. Facet arthropathy from L3-4 through; L5-S1 with vacuum phenomenon and greater degenerative changes at the lower two; levels. No level shows spondylolysis. No compression deformity is noted. There; are marginal osteophytes at multiple levels. No destructive lesion is seen. The; central canal shows disc bulge at the L4-5 with some ligamentum flavum and facet; hypertrophy. The cross-sectional area of the canal adequate. Foramina adequate.; Disc bulges at L3-4 and L2-3 also seen without central or foraminal stenosis.; The L1-2, T12-L1 and T11-12 levels are intact and at L5-S1, minimal disc bulge; without spinal stenosis. Foramina show encroachment on the right greater than; left due to facet and marginal osteophytes with disc bulge at this level.; ; Impression:; ; 1. Multilevel degenerative disc disease with marginal osteophytes but no; compression deformities, disc space narrowing or destructive lesion.; ; 2. Facet arthropathy lower lumbar spine with a few millimeters of; anterolisthesis of L4 on L5 due to facet arthritis.; ; 3. L5-S1 level shows disc bulge without central canal stenosis but facet; hypertrophy and a bulging with marginal osteophytes contribute to some foraminal; encroachment, right greater than left. No central canal stenosis or other; foraminal encroachment at any other level.; ; ; ; ; ; ; Signed by; Luisito Hadley MD 11/11/2016 09:09 A; Radiology Order: -MRI-Spine, Lumbar without contrast Test: -MRI-Spine, Lumbar without contrast REASON FOR EXAMINATION: right L5/S1 radiculopathy; MRI LUMBAR SPINE WITHOUT CONTRAST: 11/10/2016.; ; Comparison: CT lumbar spine 11/10/2016, MRI lumbar spine 05/25/2013.; ; Clinical history: Low back pain with right-sided L5-S1 radiculopathy.; ; Technique: Sagittal T1, T2 and STIR images with axial T1 and T2 sequences; provided.; ; The sagittal images show the normal lumbar lordosis maintained. The disc space; is slightly narrowed at L3-4 and L4-5 with loss of disc water signal at those; levels and L5-S1. Height is maintained at L5-S1 and L2-3. Disc water signal is; maintained and height maintained at L1-2. The two levels above that show mild; narrowing at T11-12.; ; There is no compression deformity of destructive bone lesion. The conus; terminates at the L1-2 level.; ; The T11-12, T12-L1, L1-2 and L2-3 levels show no disc bulge or herniation and no; spinal or foraminal stenosis. There is minimal facet hypertrophy at those; levels.; ; At L3-4, there is a mild diffuse disc bulge minimally flattening the ventral; thecal sac. Some ligamentum flavum and facet hypertrophy noted but the foramina; are ample. The cross-sectional area of the canal was normal.; ; At L4-5, there is hypertrophic facet change, ligamentum flavum hypertrophy and a; few millimeters of anterolisthesis of L4 on L5, similar to the 2013 MR. There is; a broad-based disc bulge centrally with disc protrusion. This thins the ventral; subarachnoid space. It abuts the L5 nerve roots in the canal and slightly; displaces the right L5 nerve root. The foramina are adequate without nerve root; compression.; ; At L5-S1, there is a minimal broad-based disc bulge abutting the thecal sac but; not abutting or displacing the S1 nerve roots. The central canal shows ample; subarachnoid space. There is foraminal encroachment on the right with the L5; nerve root compressed in the foramen. The left L5 nerve root shows less; perineural fat without nerve root compression. No other significant finding.; ; Impression:; ; 1. Lumbar spondylosis with disc bulge and central protrusion at L4-5 with; associated facet arthritis and grade 1 anterolisthesis of L4 on L5. The; protrusion abuts and slightly displaces the right L5 nerve root in the canal.; Cross-sectional area of the canal and foramina are adequate.; ; 2. At L5-S1, the central canal was adequate and there is foraminal encroachment; and nerve root compression on the right compressing that same L5 nerve root in; the foramen. The left L5 nerve root has less perineural fat but no compression; at this level. No compression deformity or other significant finding.; ; 3. All other levels were intact and unremarkable.; ; ; Signed by; Luisito Hadley MD 11/11/2016 09:19 A; Outcome: 18:24 Discharge ordered by Provider. pc 18:48 Discharge Assessment: Patient awake, alert and oriented x 3. No cognitive and/or dls functional deficits noted. Patient verbalized understanding of disposition instructions. patient administered narcotics - yes. Pt provided with safe discharge. The following High Risk Discharge criteria are identified: None. Discharged to home via wheelchair, with family. Condition: stable Condition: improved. Discharge instructions given to patient, Instructed on discharge instructions, follow up and referral plans. medication usage, Demonstrated understanding of instructions, medications, Pt was receptive of discharge instructions/ teaching. Prescriptions given X 2. CT Study completed. MRI Study completed. Property :Personal belongings accompany Pt. 18:50 Patient left the ED. dls Signatures: Dispatcher [employer] EDMS Yunior Trevizo MD MD pc Scott, Debra, RN RN dls Oanh Brown, Emory Silverman Jessica RN RN Phill Mo, [employer] jrd Mariluz Tapia, [employer] holleyb Debbie Magana RN kc3 Chart Complete MTDD
--- NOTE | 2016-11-12 19:51 | EDDOCDS ---
Physician Documentation [facility] Name: Radha So Age: 66 yrs Sex: Female : 1950 Arrival Date: 11/10/2016 Time: 12:08 Bed 6 Private MD: Disposition: 11/10 18:22 Critical Care: Critical care not applicable. pc Disposition: 11/10/16 18:24 Discharged to Home/Self Care. Impression: Intervertebral disc disorders with radiculopathy, lumbar region - L4-L5, L5-S1 with right L5 nerve root compression at both levels. - Condition is Stable. - Discharge Instructions: Herniated Disk, Sciatica. - Prescriptions for Percocet 5- 325 mg Oral Tablet - take 1 tablet by ORAL route every 6 hours As needed MDD: 4 tabs; 20 tablet. Cyclobenzaprine 10 mg Oral Tablet - take 1 tablet by ORAL route 3 times per day As needed; 15 tablet. - Medication Reconciliation, Local Pharmacy Hours form. - Follow up: Jaime Gandhi; When: Call to arrange an appointment; Reason: Recheck today's complaints, Continuance of care. - Problem is new. - Symptoms have improved. HPI: 13:31 This 66 yrs old Female presents to ER via Walkin/Carried/Asstd with pc complaints of Chest Pain, Leg Pain. 13:32 The history is obtained from the patient. She has chronic low back pain that is managed pc with OTCs well. She did shovelling 6 days ago and felt sudden pain in her low back that radiated into her right buttock and down the back of her leg to her foot. She denies having any numbness or weakness in the leg. She has been having increased pain and now is unable to walk without a walker or two canes, but even then, has been bedridden for the past 3 days. She had increased pain while trying to go to the bathroom this morning and felt dizzy during the pain., She made it back to her bed and lay down and still had a sense of the room spinning. She was not SOB but she did have a sudden "twinge of pain" in her left breast. She denies any bowel or bladder control issues. 13:37 At their worst, the symptoms were a 10 out of 10. In the emergency department, the pc symptoms are unchanged. The patient has experienced a previous episode, approximately 5 years ago. The patient has been recently seen by their primary care provider, for a routine, regularly scheduled appointment. Historical: - Allergies: codeine (Anaphylaxis); - Home Meds: 1. letrozole 2.5 mg oral tab 1 tab once daily 2. potassium chloride 10 mEq Oral cpER 2 caps once daily 3. Prinivil 10 mg Oral tab 1 tab once daily (Last dose: 11/10/2016) 4. chlorthalidone Unknown Oral 0.5 tab once daily 5. Vitamin D3 5,000 unit oral tab daily 6. magnesium oxide 400 mg Oral tab daily 7. Tylenol 500 mg Oral tab prn (Last dose: 11/09/2016) - PMHx: Hypertension; Cancer, Uterine; back pain; DVT; Pulmonary Embolism; DDD L-Spine; - PSHx: D & C; Oophorectomy - unilateral; right knee arthroscopy with meniscus repair; - The history from nurses notes was reviewed: and elements of the historical information I have obtained differs from that reported to nursing. - Social history: Smoking status: Patient states former smoker of tobacco. No barriers to communication noted, The patient speaks fluent Croatian. - Family history: Not pertinent. - : The pt / caregiver states he / she is not on anticoagulants. Home medication list is obtained from the patient. - Hospitalizations: : No recent hospitalization is reported. - Exposure Risk Screening:: None identified. - Immunization history:: All immunizations up-to-date. - Social history:: the patient is a non-smoker, the patient does not drink alcohol. ROS: 13:37 All systems are negative except as listed. pc Exam: 13:37 General Appearance: alert, the patient is in moderate distress. pc 13:37 EENT: normal eye inspection, ears, nose and throat normal, pharynx normal, mucous membranes moist 13:37 Neck: The exam reveals no acute abnormalities. ROM is normal and painless. No nuchal rigidity is noted.. 13:37 Respiratory: no respiratory distress, normal breath sounds, chest non-tender. 13:37 CVS: regular pulse rate, regular rhythm, normal S1 and S2, no murmurs, strong peripheral pulses. 13:37 Abdomen: soft, non-tender, no organomegaly, normal bowel sounds. 13:37 Back: Pain is noted in the lumbar area and right low back, SLR positive at 45 degrees right, negative left . 13:37 Skin: skin color is normal, warm, dry. 13:37 Extremities: The extremities have a grossly normal appearance, are non-tender, without acute ROM abnormalities. 13:37 Neuro: oriented x 3, cranial nerves normal as tested, no motor deficits, no sensory deficits. 13:37 Psych: normal mood. Vital Signs: 12:11 BP 194 / 80 RA Sitting (auto/lg); Pulse 85; Resp 22; Temp 98.6(O); Pulse Ox 99% on R/A; bnb Weight 138.8 kg / 306 lbs; Height 5 ft. 5 in. (165.10 cm); Pain 8/10; 15:09 BP 135 / 65; Pulse 82; Resp 20; Pain 8/10; dls 15:42 BP 136 / 74; Pain 3/10; dls 16:58 BP 126 / 59 (auto/); dls 16:59 Pulse 78 MON; dls 17:00 Pulse 74 MON; Pulse Ox 95% ; dls 17:26 BP 108 / 70 (auto/); dls 17:26 Pulse 80 MON; Pulse Ox 94% ; dls 18:47 BP 122 / 60; Pulse 76; Resp 18; Temp 97.4(TE); Pulse Ox 98% on R/A; Pain 2/10; dls 12:11 Body Mass Index 50.92 (138.80 kg, 165.10 cm) bnb MDM: 12:19 ECG WITH READING ER PHYS+CARDIAG ordered. EDMS 13:12 IV Saline Lock ordered. pc 13:12 morphine 4 mg IVP once ordered. pc 13:12 Ondansetron 4 mg IVP once ordered. pc 13:12 Diazepam 2 mg IVP once ordered. pc 13:13 [employer]/Pulse Ox/q 30 min VS ordered. pc 13:13 CBC with Diff Ordered. EDMS 13:13 MED Profile Ordered. EDMS 13:13 CIP Ordered. EDMS 13:13 Troponin Ordered. EDMS 13:14 CT Chest Angio R/O PE Ordered. EDMS 13:14 CT Spine, Lumbar W/o Contrast Ordered. EDMS 13:30 Test interpretation: EKG. pc 13:37 Differential Diagnosis: right L5/S1 radicular pain; dizziness/brief chest pain with pc history of PE still on antiestrogen therapy. Plan: EK, labs, imaging, analgesia. 13:46 CBC with Diff Reviewed. pc 13:46 MED Profile Reviewed. pc 13:46 CIP Reviewed. pc 13:46 Troponin Reviewed. pc 14:56 MRI Screening Tool - Place on chart, inform RN ordered. pc 14:57 morphine 4 mg IVP every 15 minutes; Document pain score/vitals after each dose (Hold if pc SBP < 90mmHg) x2 ordered. 14:58 -MRI-Spine, Lumbar without contrast Ordered. EDMS 15:09 MRI Screening Tool - Place on chart, inform RN complete. dls 16:16 Financial registration complete. zo 16:36 [place] [place] into Eq[employer] and attached to record. zo 17:29 REGULAR+DIET ordered. EDMS 17:55 Ambulate patient to assess pain tolerance ordered. pc 18:15 Data reviewed: old medical records, vital signs, nurses notes, EKG(s), lab test pc results, all radiology studies and available results. Test interpretation: LAB - all labs as ordered have been reviewed, interpreted and considered in the overall management of the clinical presentation; interpreted by Radiologist and personally reviewed, Chest CT; no acute disease, L-Spine CT; L4/5 grade 1 anterolisthesis, L5-S1 disc bulge , MRI - interpreted by Radiologist and personally reviewed, L-Spine MRI L4-5 disc bulge with right L5 nerve root compression, L5-S1 disc bulge with right L5 nerve root compression . The patient has been re-examined and re-evaluated. The patient's symptoms have markedly improved after treatment, as she is walking throughout the ED without assistance. 18:22 Physician consultation: Dr. Jaime Gandhi was contacted at 18:23, regarding patient's pc condition, and will see patient in office. Disposition: The historical points, examination findings, and any diagnostic results supporting the provided diagnosis, were discussed with the patient or legal guardian. The need for outpatient follow up with the provider listed on their discharge instructions was discussed. They were encouraged to return to [facility], or the nearest ED, if symptoms worsen/persist, or for any other questions/concerns. 18:27 oxyCODONE-acetaminophen 4 pack 5 mg-325 mg 1 packets PO once; Dispense with pt, take as pc per instruction on package ordered. 18:27 Cyclobenzaprine 10 mg PO Per package directions; dispense 2 to go: take one at bedtime pc and in the morning ordered. 11/11 14:30 ECG/EKG was scanned into Eqlim and attached to record. EC/12 13:30 Rate is 75 beats/min. Rhythm is regular, Normal Sinus Rhythm. Left axis deviation pc noted. QRS is negative in leads II, aVF. CO interval is normal. QRS interval is normal. QT interval is normal. No Q waves. T waves are Normal. No ST changes noted. Clinical impression: Normal Sinus Rhythm and LAD. No change from previous ECG in September,. Administered Medications: 13:26 Drug: Ondansetron 4 mg [ondansetron HCl 2 mg/mL intravenous solution (2 mL)] Route: dls IVP; Site: right antecubital; 13:26 Drug: Diazepam 2 mg [diazepam 5 mg/mL injection syringe (0.4 mL)] Route: IVP; Site: [facility] right antecubital; 13:27 Drug: morphine 4 mg [morphine 4 mg/mL intravenous cartridge (1 mL)] Route: IVP; Site: [facility] right antecubital; 15:09 Drug: morphine 4 mg [morphine 4 mg/mL intravenous cartridge (1 mL)] Route: IVP; Site: [facility] right antecubital; 15:42 Follow up: BP 136 / 74; Pain 3/10 Adult; Response: Pain is decreased dls 18:46 Drug: oxyCODONE-acetaminophen 4 pack 1 packets [oxycodone-acetaminophen 5 mg-325 mg dls tablet (1 tabs)] {Co-Signature: kc3 (Debbie Magana RN).} Route: PO; 18:46 Drug: Cyclobenzaprine 10 mg [cyclobenzaprine 10 mg tablet (1 tabs)] Route: PO; dls 18:46 Follow up: Response: Med's dispensed home dls Signatures: Dispatcher [employer] EDYunior German MD MD pc Scott, Debra, RN RN dls Barnhardt, Gloria, Emory Silverman Jessica, RN RN jjr Kelsi Crane RN kc3 The chart was reviewed and I authenticate all verbal orders and agree with the evaluation and treatment provided.Corrections: (The following items were deleted from the chart) 13:40 13:32 She has chronic low back pain pc pc Attachments: 16:36 [place] [place] zo 11/11 14:30 ECG/EKG gb Chart Complete MTDD
--- NOTE | 2016-11-12 19:51 | EDDOCDS ---
Physician Documentation [facility] Name: Radha So Age: 66 yrs Sex: Female : 1950 Arrival Date: 11/10/2016 Time: 12:08 Bed 6 Private MD: Disposition: 11/10 18:22 Critical Care: Critical care not applicable. pc Disposition: 11/10/16 18:24 Discharged to Home/Self Care. Impression: Intervertebral disc disorders with radiculopathy, lumbar region - L4-L5, L5-S1 with right L5 nerve root compression at both levels. - Condition is Stable. - Discharge Instructions: Herniated Disk, Sciatica. - Prescriptions for Percocet 5- 325 mg Oral Tablet - take 1 tablet by ORAL route every 6 hours As needed MDD: 4 tabs; 20 tablet. Cyclobenzaprine 10 mg Oral Tablet - take 1 tablet by ORAL route 3 times per day As needed; 15 tablet. - Medication Reconciliation, Local Pharmacy Hours form. - Follow up: Jaime Gandhi; When: Call to arrange an appointment; Reason: Recheck today's complaints, Continuance of care. - Problem is new. - Symptoms have improved. HPI: 13:31 This 66 yrs old Female presents to ER via Walkin/Carried/Asstd with pc complaints of Chest Pain, Leg Pain. 13:32 The history is obtained from the patient. She has chronic low back pain that is managed pc with OTCs well. She did shovelling 6 days ago and felt sudden pain in her low back that radiated into her right buttock and down the back of her leg to her foot. She denies having any numbness or weakness in the leg. She has been having increased pain and now is unable to walk without a walker or two canes, but even then, has been bedridden for the past 3 days. She had increased pain while trying to go to the bathroom this morning and felt dizzy during the pain., She made it back to her bed and lay down and still had a sense of the room spinning. She was not SOB but she did have a sudden "twinge of pain" in her left breast. She denies any bowel or bladder control issues. 13:37 At their worst, the symptoms were a 10 out of 10. In the emergency department, the pc symptoms are unchanged. The patient has experienced a previous episode, approximately 5 years ago. The patient has been recently seen by their primary care provider, for a routine, regularly scheduled appointment. Historical: - Allergies: codeine (Anaphylaxis); - Home Meds: 1. letrozole 2.5 mg oral tab 1 tab once daily 2. potassium chloride 10 mEq Oral cpER 2 caps once daily 3. Prinivil 10 mg Oral tab 1 tab once daily (Last dose: 11/10/2016) 4. chlorthalidone Unknown Oral 0.5 tab once daily 5. Vitamin D3 5,000 unit oral tab daily 6. magnesium oxide 400 mg Oral tab daily 7. Tylenol 500 mg Oral tab prn (Last dose: 11/09/2016) - PMHx: Hypertension; Cancer, Uterine; back pain; DVT; Pulmonary Embolism; DDD L-Spine; - PSHx: D & C; Oophorectomy - unilateral; right knee arthroscopy with meniscus repair; - The history from nurses notes was reviewed: and elements of the historical information I have obtained differs from that reported to nursing. - Social history: Smoking status: Patient states former smoker of tobacco. No barriers to communication noted, The patient speaks fluent Greek. - Family history: Not pertinent. - : The pt / caregiver states he / she is not on anticoagulants. Home medication list is obtained from the patient. - Hospitalizations: : No recent hospitalization is reported. - Exposure Risk Screening:: None identified. - Immunization history:: All immunizations up-to-date. - Social history:: the patient is a non-smoker, the patient does not drink alcohol. ROS: 13:37 All systems are negative except as listed. pc Exam: 13:37 General Appearance: alert, the patient is in moderate distress. pc 13:37 EENT: normal eye inspection, ears, nose and throat normal, pharynx normal, mucous membranes moist 13:37 Neck: The exam reveals no acute abnormalities. ROM is normal and painless. No nuchal rigidity is noted.. 13:37 Respiratory: no respiratory distress, normal breath sounds, chest non-tender. 13:37 CVS: regular pulse rate, regular rhythm, normal S1 and S2, no murmurs, strong peripheral pulses. 13:37 Abdomen: soft, non-tender, no organomegaly, normal bowel sounds. 13:37 Back: Pain is noted in the lumbar area and right low back, SLR positive at 45 degrees right, negative left . 13:37 Skin: skin color is normal, warm, dry. 13:37 Extremities: The extremities have a grossly normal appearance, are non-tender, without acute ROM abnormalities. 13:37 Neuro: oriented x 3, cranial nerves normal as tested, no motor deficits, no sensory deficits. 13:37 Psych: normal mood. Vital Signs: 12:11 BP 194 / 80 RA Sitting (auto/lg); Pulse 85; Resp 22; Temp 98.6(O); Pulse Ox 99% on R/A; bnb Weight 138.8 kg / 306 lbs; Height 5 ft. 5 in. (165.10 cm); Pain 8/10; 15:09 BP 135 / 65; Pulse 82; Resp 20; Pain 8/10; dls 15:42 BP 136 / 74; Pain 3/10; dls 16:58 BP 126 / 59 (auto/); dls 16:59 Pulse 78 MON; dls 17:00 Pulse 74 MON; Pulse Ox 95% ; dls 17:26 BP 108 / 70 (auto/); dls 17:26 Pulse 80 MON; Pulse Ox 94% ; dls 18:47 BP 122 / 60; Pulse 76; Resp 18; Temp 97.4(TE); Pulse Ox 98% on R/A; Pain 2/10; dls 12:11 Body Mass Index 50.92 (138.80 kg, 165.10 cm) bnb MDM: 12:19 ECG WITH READING ER PHYS+CARDIAG ordered. EDMS 13:12 IV Saline Lock ordered. pc 13:12 morphine 4 mg IVP once ordered. pc 13:12 Ondansetron 4 mg IVP once ordered. pc 13:12 Diazepam 2 mg IVP once ordered. pc 13:13 Emergency Room Clinician/Pulse Ox/q 30 min VS ordered. pc 13:13 CBC with Diff Ordered. EDMS 13:13 MED Profile Ordered. EDMS 13:13 CIP Ordered. EDMS 13:13 Troponin Ordered. EDMS 13:14 CT Chest Angio R/O PE Ordered. EDMS 13:14 CT Spine, Lumbar W/o Contrast Ordered. EDMS 13:30 Test interpretation: EKG. pc 13:37 Differential Diagnosis: right L5/S1 radicular pain; dizziness/brief chest pain with pc history of PE still on antiestrogen therapy. Plan: EK, labs, imaging, analgesia. 13:46 CBC with Diff Reviewed. pc 13:46 MED Profile Reviewed. pc 13:46 CIP Reviewed. pc 13:46 Troponin Reviewed. pc 14:56 MRI Screening Tool - Place on chart, inform RN ordered. pc 14:57 morphine 4 mg IVP every 15 minutes; Document pain score/vitals after each dose (Hold if pc SBP < 90mmHg) x2 ordered. 14:58 -MRI-Spine, Lumbar without contrast Ordered. EDMS 15:09 MRI Screening Tool - Place on chart, inform RN complete. dls 16:16 Financial registration complete. zo 16:36 [place] [place] was scanned into [employer] and attached to record. zo 17:29 REGULAR+DIET ordered. EDMS 17:55 Ambulate patient to assess pain tolerance ordered. pc 18:15 Data reviewed: old medical records, vital signs, nurses notes, EKG(s), lab test pc results, all radiology studies and available results. Test interpretation: LAB - all labs as ordered have been reviewed, interpreted and considered in the overall management of the clinical presentation; interpreted by Radiologist and personally reviewed, Chest CT; no acute disease, L-Spine CT; L4/5 grade 1 anterolisthesis, L5-S1 disc bulge , MRI - interpreted by Radiologist and personally reviewed, L-Spine MRI L4-5 disc bulge with right L5 nerve root compression, L5-S1 disc bulge with right L5 nerve root compression . The patient has been re-examined and re-evaluated. The patient's symptoms have markedly improved after treatment, as she is walking throughout the ED without assistance. 18:22 Physician consultation: Dr. Jaime Gandhi was contacted at 18:23, regarding patient's pc condition, and will see patient in office. Disposition: The historical points, examination findings, and any diagnostic results supporting the provided diagnosis, were discussed with the patient or legal guardian. The need for outpatient follow up with the provider listed on their discharge instructions was discussed. They were encouraged to return to [facility], or the nearest ED, if symptoms worsen/persist, or for any other questions/concerns. 18:27 oxyCODONE-acetaminophen 4 pack 5 mg-325 mg 1 packets PO once; Dispense with pt, take as pc per instruction on package ordered. 18:27 Cyclobenzaprine 10 mg PO Per package directions; dispense 2 to go: take one at bedtime pc and in the morning ordered. 11/11 14:30 ECG/EKG was scanned into [employer] Touch and attached to record. EC/12 13:30 Rate is 75 beats/min. Rhythm is regular, Normal Sinus Rhythm. Left axis deviation pc noted. QRS is negative in leads II, aVF. DC interval is normal. QRS interval is normal. QT interval is normal. No Q waves. T waves are Normal. No ST changes noted. Clinical impression: Normal Sinus Rhythm and LAD. No change from previous ECG in September,. Administered Medications: 13:26 Drug: Ondansetron 4 mg [ondansetron HCl 2 mg/mL intravenous solution (2 mL)] Route: dls IVP; Site: right antecubital; 13:26 Drug: Diazepam 2 mg [diazepam 5 mg/mL injection syringe (0.4 mL)] Route: IVP; Site: [facility] right antecubital; 13:27 Drug: morphine 4 mg [morphine 4 mg/mL intravenous cartridge (1 mL)] Route: IVP; Site: [facility] right antecubital; 15:09 Drug: morphine 4 mg [morphine 4 mg/mL intravenous cartridge (1 mL)] Route: IVP; Site: [facility] right antecubital; 15:42 Follow up: BP 136 / 74; Pain 3/10 Adult; Response: Pain is decreased dls 18:46 Drug: oxyCODONE-acetaminophen 4 pack 1 packets [oxycodone-acetaminophen 5 mg-325 mg dls tablet (1 tabs)] {Co-Signature: kc3 (Debbie Magana RN).} Route: PO; 18:46 Drug: Cyclobenzaprine 10 mg [cyclobenzaprine 10 mg tablet (1 tabs)] Route: PO; dls 18:46 Follow up: Response: Med's dispensed home dls Signatures: Dispatcher [employer] EDYunior German MD MD pc Scott, Debra, RN RN dls Barnhardt, Gloria, Emory Silverman Jessica, RN RN jjr Kelsi Crane RN kc3 The chart was reviewed and I authenticate all verbal orders and agree with the evaluation and treatment provided.Corrections: (The following items were deleted from the chart) 13:40 13:32 She has chronic low back pain pc pc Attachments: 16:36 [place] [place] zo 11/11 14:30 ECG/EKG gb Chart Complete MTDD
== END 2016-11-10 18:50 | disposition home or self-care (01) ==
LOC: M ED 12:08
DX: M51.17 Intervertebral disc disorders with radiculopathy, lumbosacral region (principal); M51.06 Intervertebral disc disorders with myelopathy, lumbar region; I10 Essential (primary) hypertension; C54.1 Malignant neoplasm of endometrium; Z86.718 Personal history of other venous thrombosis and embolism; Z90.79 Acquired absence of other genital organ(s); Z87.891 Personal history of nicotine dependence; Z79.899 Other long term (current) drug therapy; Z88.5 Allergy status to narcotic agent
CPT/HCPCS: 36415; 71275; 72131; 72148; 80048; 82550; 82553; 85025; 93005; 93041; 96374; 96375; 96376; 99285; J2405; J3360; Q9967

== ENCOUNTER → 2016-11-14 | Outpatient (CLI) | payer OTHER ==
--- NOTE | 2016-11-14 16:29 | REP ---
Clinical: Spondylosis. Technique: AP, lateral, bilateral oblique, flexion/extension, and coned-down views of the lumbosacral spine. Comparison: 03/03/2002. Findings: 8 mm of chronic anterolisthesis at the L4-5 level is appreciated with associated hypertrophic facet changes and remains relatively stable on flexion and extension views. Advanced multilevel degenerative changes are also noted throughout the visualized lower thoracic and lumbosacral spine including anterior spurring/osteophytes (primarily noted at the T10-11, T11-12, L2-3, and L3-4 levels), endplate sclerosis with disc space narrowing as well as hypertrophic facet changes. There is no evidence for acute fracture / compression injury. Impression: Moderate to advanced multilevel degenerative changes including chronic anterolisthesis at the L4-5 level. Signed by Lucio Mcdaniels MD 11/14/2016 04:19 P
--- NOTE | 2016-11-14 16:29 | REP ---
Clinical: Spondylosis. Technique: AP, lateral, flexion/extension, open-mouth, bilateral oblique and swimmer's views. Findings: Moderate to early advanced multilevel degenerative changes include endplate sclerosis with disc space narrowing and anterior osteophytosis primarily involving the C5-6 and C6-7 levels. No acute fracture / compression injury or subluxation. Open mouth view demonstrates normal C1-C2 articulation and odontoid process. Oblique views demonstrate relatively patent neural foramen with subtle narrowing at the left C3-4 level. Impression: Moderate to early advanced multilevel degenerative changes. Signed by Lucio Mcdaniels MD 11/14/2016 04:21 P
== END ==
LOC: M LAB 15:21
PROVIDERS: ATTEND Neurological Surgery
DX: M47.892 Other spondylosis, cervical region (principal)

== ENCOUNTER → 2017-06-05 | Outpatient (CLI) | payer MEDICARE, OTHER ==
--- NOTE | 2017-06-05 12:05 | REP ---
Clinical: History of endometrial carcinoma for followup. Technique: Transabdominal pelvic ultrasound followed by transvaginal examination for better evaluation of the endometrium and adnexa with color Doppler evaluation of the ovaries. Findings: Bladder is unremarkable and measures 10.3 x 6.4 x 9.5 cm. Heterogeneous anteverted uterus measures 5.1 x 3.1 x 4.4 cm and includes a 3.2 x 2.0 x 2.5 cm right-sided rim calcified degenerating fibroid causing considerable shadowing with incomplete evaluation of the underlying endometrium. A 1.2 cm shadowing lesion is also identified within the lower uterine segment/cervix and may represent second degenerating fibroid. The ovaries are not visualized. No pelvic free fluid. Impression: 1. Limited examination as described above including partially calcified degenerating fibroid(s) causing considerable distortion and shadowing and incomplete evaluation of the endometrium. 2. Ovaries not visualized. 3. No pelvic fluid.
== END ==
LOC: M WHC 10:34
PROVIDERS: ATTEND Obstetrics & Gynecology
DX: N95.0 Postmenopausal bleeding (principal); D25.9 Leiomyoma of uterus, unspecified

== ENCOUNTER → 2017-12-26 | Outpatient (CLI) | payer MEDICARE, OTHER | LOC: M WHC 07:52 | DX: Z13.820 Encounter for screening for osteoporosis (principal); M85.9 Disorder of bone density and structure, unspecified | CPT/HCPCS: 77080 ==

== ENCOUNTER 2018-01-15 07:25 | Day surgery (SDC) | payer MEDICARE, OTHER ==
[2018-01-15] MEDS: LIDOCAINE 0.75%/EPINEPHRINE 0.025% IN BSS 1ML SYR INTRACAMERAL (OR ONLY) As Ordered (06:41)
[2018-01-15] MEDS ORDERED: LIDOCAINE 1% MDV 20ML VIAL SQ (07:45)
[2018-01-15] MEDS: PHENYLEPHRINE 2.5% OPHTH SOL 2ML OS (08:51)
[2018-01-15] MEDS: TROPICAMIDE 1% OPHTH SOLN 2ML OS (08:52)
[2018-01-15] MEDS: OFLOXACIN 0.3 % (OCUFLOX) OPTH SOL 5ML OS (08:52)
[2018-01-15] MEDS: PROPARACAINE 0.5% OPHTH SOL 15ML OS (08:52)
[2018-01-15] MEDS ORDERED: fentaNYL 100 MCG/2 ML INJECTION (J3010) As Ordered (09:27)
[2018-01-15] MEDS ORDERED: MIDAZOLAM INJ 2 MG/2 ML VIAL (J2250) As Ordered (09:27)
[2018-01-15 09:31] LABS: BEDSIDE GLUCOSE 120 MG/DL (80-115)
[2018-01-15] MEDS: POVIDONE-IODINE 5% OPHTH PREP SOL 30ML As Ordered (10:05)
[2018-01-15] MEDS: DUOVISC (0.50ML VISCOAT/0.55ML PROVISC) OPHTH KIT As Ordered (10:05)
[2018-01-15] MEDS: BALANCED SALT IRRIGATION SOLUTION 500ML BAG (FOR OR EYE MACHINE) As Ordered (10:05)
[2018-01-15] MEDS: CEFUROXIME 1MG/0.1ML INTRACAMERAL INJ As Ordered (10:05)
== END 2018-01-15 11:08 | disposition home or self-care (01) ==
LOC: M SDC 07:25
DX: H25.12 Age-related nuclear cataract, left eye (principal); I10 Essential (primary) hypertension; E11.9 Type 2 diabetes mellitus without complications; M17.12 Unilateral primary osteoarthritis, left knee; E78.00 Pure hypercholesterolemia, unspecified; G43.909 Migraine, unspecified, not intractable, without status migrainosus; E66.01 Morbid (severe) obesity due to excess calories; Z68.43 Body mass index [BMI] 50.0-59.9, adult; Z79.899 Other long term (current) drug therapy; Z79.82 Long term (current) use of aspirin; Z79.84 Long term (current) use of oral hypoglycemic drugs; Z86.718 Personal history of other venous thrombosis and embolism; Z86.711 Personal history of pulmonary embolism; Z85.41 Personal history of malignant neoplasm of cervix uteri
CPT/HCPCS: 66984

== ENCOUNTER → 2021-02-05 | Outpatient (CLI) | payer MEDICARE, OTHER ==
[~2021-02-05] MED LIST changes: +ASPI81TA86 PO; +ATOR1TAB19 PO; +CHLO125TA PO; +LETR2.5T2 PO; +LISI10TA22 PO; +METF500T13 PO; +POTA10CA32 PO
--- NOTE | 2021-02-05 10:43 | DEXAMM ---
INDICATION: M85.80 [facility] DIRD OF BONE DENSITY AND STRUCTURE. COMPARISON: 12/26/2017, 04/13/2009. TECHNIQUE: Bone density was measured using dual-energy x-ray absorptiometry (DEXA). FINDINGS: AP SPINE L1-L4 BMD 1.236 g/cm2 Young Adult T-Score 0.3 Age Matched Z-Score 2.0. LT FEMUR, TOTAL BMD 0.764 g/cm2 Young Adult T-Score -1.9 Age Matched Z-Score -0.5. LT NECK BMD 0.883 g/cm2 Young Adult T-Score -1.1 Age Matched Z-Score 0.5. RT FEMUR, TOTAL BMD 0.966 g/cm2 Young Adult T-Score -0.3 Age Matched Z-Score 1.1. RT NECK BMD 0.947 g/cm2 Young Adult T-Score -0.7 Age Matched Z-Score 1.0. IMPRESSION: There is normal bone density of the spine. There is low bone density of the left hip. There is normal bone density of the right hip. The density of the spine has increased 3.0% since the initial exam on 04/13/2009. The density of the spine increased 5.1% since most recent exam on 12/26/2017. The density of the left hip has decreased 31.7% since initial exam on 04/13/2009. The density of the left hip has decreased 13.3% since most recent exam on 12/26/2017. The density of the right hip has decreased 9.3% since the initial exam on 04/13/2009. The density of the right hip has increased 13.4% since the most recent exam on 12/26/2017. FOLLOW-UP: Recommendation for the next bone density exam: 2 years. <Electronically signed by Willie Frias > 02/05/21 [id number]
== END ==
LOC: M WHC 08:00
PROVIDERS: ATTEND Internal Medicine
DX: M85.852 Other specified disorders of bone density and structure, left thigh (principal)

== ENCOUNTER → 2021-12-11 | Outpatient (CLI) | payer MEDICARE, OTHER | LOC: M WUC 14:29 | PROVIDERS: ATTEND Physician Assistant Medical | DX: M25.552 Pain in left hip (principal) ==

== ENCOUNTER → 2021-12-20 | Outpatient (CLI) | payer MEDICARE, OTHER | LOC: M RAD 14:00 | PROVIDERS: ATTEND Physician Assistant Medical | DX: R10.32 Left lower quadrant pain (principal) ==

== ENCOUNTER → 2022-01-31 | Outpatient (REF) | payer MEDICARE, OTHER ==
[2022-02-01 10:07] LABS: MAU/CREAT RATIO 437.5 MCG/MG (0.0-30.0)
== END ==
LOC: M LAB REF 12:21
PROVIDERS: ATTEND Internal Medicine
DX: N39.0 Urinary tract infection, site not specified (principal); E11.9 Type 2 diabetes mellitus without complications

== ENCOUNTER → 2022-05-03 | Outpatient (REF) | payer MEDICARE, OTHER | LOC: M LAB REF 16:09 | PROVIDERS: ATTEND Internal Medicine | DX: D64.9 Anemia, unspecified (principal) ==

== ENCOUNTER → 2024-03-09 | Outpatient (CLI) | payer MEDICARE, OTHER ==
[~2024-03-09] MED LIST changes: +ALEN35TA56 PO; +METF10004 PO; +METO1TAB32 PO; -POTA10CA32 PO; +POTA10CA70 PO
== END ==
LOC: M RAD 09:15
PROVIDERS: ATTEND Physician Assistant
DX: Z86.711 Personal history of pulmonary embolism (principal); M71.21 Synovial cyst of popliteal space [Baker], right knee

== ENCOUNTER → 2024-03-10 | Outpatient (CLI) | payer MEDICARE, OTHER | LOC: M CARPUL 13:10 | PROVIDERS: ATTEND Internal Medicine | DX: I26.09 Other pulmonary embolism with acute cor pulmonale (principal) ==

== ENCOUNTER 2025-04-13 11:21 | Day surgery (SDC) | payer MEDICARE, OTHER ==
[~2025-04-13] VITALS: Ht 160 cm; Wt 123.0 kg
[~2025-04-13 11:21] MED LIST changes: +ALBU8.5H; +MAGN400T2 PO; +OYST1TAB PO; +VITA100093 PO; +XARE20TA PO
[2025-04-13 12:50] VITALS: TEMP 98.1
[2025-04-13 13:05] VITALS: BP 107/57; O2SAT 97
== END 2025-04-13 13:20 | disposition home or self-care (01) ==
LOC: M OPP 11:21
PROVIDERS: ATTEND Internal Medicine Gastroenterology
DX: Z12.11 Encounter for screening for malignant neoplasm of colon (principal); K64.0 First degree hemorrhoids; Z88.5 Allergy status to narcotic agent; Z91.040 Latex allergy status; Z79.84 Long term (current) use of oral hypoglycemic drugs; Z79.01 Long term (current) use of anticoagulants; Z79.899 Other long term (current) drug therapy; Z86.711 Personal history of pulmonary embolism

== ENCOUNTER 2025-08-12 23:44 | Emergency (ER) | payer MEDICARE, OTHER ==
[~2025-08-12] VITALS: Ht 162.6 cm; Wt 125.9 kg
[2025-08-13 01:07] LABS: BASO # 0.1 10^3/uL (0.0-0.2); BASO % 1.3 % (0.0-1.0); EOS # 0.3 10^3/uL (0.0-0.5); EOS % 3.6 % (0.0-3.0); LYMPH # 2.0 10^3/uL (1.5-5.0); LYMPH % 20.8 % (24.0-44.0); MONO # 1.1 10^3/uL (0.0-0.8); MONO % 11.6 % (2.0-8.0); NEUTROPHILS # 5.9 10^3/uL (1.5-8.5); NEUTROPHILS % 62.3 % (36.0-66.0); PLATELET COUNT, AUTOMATED 275 10^3/uL (150-450)
[2025-08-13 01:30] LABS: INR 1.75
[2025-08-13 01:54] LABS: CPK CREATINE PHOSPHOKINASE 62 U/L (34-145)
[2025-08-13 01:55] LABS: CALCIUM LEVEL 9.4 MG/DL (8.3-10.6); CARBON DIOXIDE LEVEL 24 MMOL/L (20-31); CHLORIDE LEVEL 100 MMOL/L (98-107); CK-MB VALUE MASS < 1.0 NG/ML (<3.6); CREATININE FOR GFR 1.29 MG/DL (0.55-1.30); GLOMERULAR FILTRATION RATE 43.8 (>39); POTASSIUM SERUM 4.1 MMOL/L (3.5-5.1); SODIUM LEVEL 137 MMOL/L (136-145)
[2025-08-13 04:13] LABS: CK-MB VALUE MASS 1.2 NG/ML (<3.6)
[2025-08-13 04:15] LABS: CPK CREATINE PHOSPHOKINASE 37.0 U/L (34-145); MB/CK RELATIVE INDEX 3.24 (< OR =4)
[2025-08-13 04:46] VITALS: BP 140/74; TEMP 98.5; O2SAT 98
== END 2025-08-13 05:03 | disposition home or self-care (01) ==
LOC: M ED 23:44
DX: R68.84 Jaw pain (principal); I49.1 Atrial premature depolarization; I44.4 Left anterior fascicular block; Z86.711 Personal history of pulmonary embolism; Z88.5 Allergy status to narcotic agent; Z91.040 Latex allergy status; Z79.52 Long term (current) use of systemic steroids; Z79.899 Other long term (current) drug therapy; Z79.02 Long term (current) use of antithrombotics/antiplatelets; Z79.4 Long term (current) use of insulin